=== PATIENT | male | born 1985 | race Caucasian/White ===

== ENCOUNTER 2019-05-21 22:14 | Emergency (ER) | payer SELFPAY ==
[~2019-05-21] VITALS: Ht 175.3 cm; Wt 79.5 kg
[2019-05-21] MEDS ORDERED: ketorolac trometh inj. 60 MG/2 ML VIAL IM ONE (23:55)
[2019-05-21] MEDS ORDERED: acetaminophen 325mg tablet PO ONE (23:55)
[2019-05-22 00:15] VITALS: BP 138/80
== END 2019-05-22 00:26 | disposition home or self-care (01) ==
LOC: ER 22:14
DX: M25.522 Pain in left elbow (principal); R22.32 Localized swelling, mass and lump, left upper limb
CPT/HCPCS: 73080; 96372; 99283; J1885